=== PATIENT | female | born 1990 | race Caucasian/White ===

== ENCOUNTER 2023-10-23 13:45 | Outpatient (RCR) | payer OTHER, SELFPAY ==
--- NOTE | 2023-10-15 17:24 | PT.OIE ---
Current Diagnoses Constipation, unspecified (10/15/23) Radiculopathy, lumbosacral region (10/15/23) Pelvic and perineal pain (10/15/23) Fecal smearing (10/15/23) Unspecified urinary incontinence (10/15/23) Visit Care Team Role Provider Type GUNNAR Woodruff Family Provider Non-Staff Primary Care Provider Specialty: Nursing Address: [facility] [address], [place], [address] Email: Quintin Bird MD Attending Provider Non-Staff Referring Provider Specialty: COUNTER WAITER Address: [facility] [employer], [address], [place], [address] Email: Physical Therapy Initial Evaluation PT-OP-A Visit Information Start: 10/08/23 17:51 Freq: Status: Active Protocol: Document 10/15/23 07:19 LRN (Rec: 10/15/23 09:03 LRN [id number]) Out-Patient Physical Therapy Visit Information Visit Information Visit Type Initial Evaluation Visit Start Time 07:30 Visit Stop Time 08:20 Visit Number 1 Evaluation Information Evaluation Date 10/15/23 Precautions Precautions Medicated for Anxiety and OCD PT-OP-B Current Condition Start: 10/08/23 17:51 Freq: Status: Active Protocol: Document 10/15/23 07:19 LRN (Rec: 10/15/23 09:03 LRN [id number]) Current Condition History of Current Condition Onset Date Urinary (2011) and fecal (aug 2021) Current Complaints Urinary stress incont and fecal leakage of viscous fluid . History of Current Condition Pt reports stress urinary incontinence, since first in 2011 that is now daily. She also reports fecal viscous fluid leakage since her 2nd . States she can't feel when she is leaking the fecal, brown tinted, viscous fluid. She denies solid stool leakage. She has had LBP since her recent and is having trouble walking standing due to sharp pains. States with her 2021 she developed gestational diabetes at 35th-36th week, and an irritable uterus that caused her core muscles to be constantly contracted with subsequent totally urinary incontinence; therefore was induced at 37 weeks. She has had lower sacral pain since childhold that shoots down the posterior aspect of the RLE ending at the bottom of the plantar surface of the midfoot (middle toe, proximal 3rd phalanx) where she had stepped on a nail. Lower sacral pain goes away with rubbing of the foot. She reports abdominal pain across the abdomen described as ongoing heavy pain, and groin pain that is sharp in nature that shoots up into the abdomen with anything like walking or lifting one leg out too far. She trys to contract her PF before bending to miminimize urinary leakage. Prior Treatments and Tests None Treatment Goals Patient/Caregiver Goals Pt goal is to improve PF health to reduce pain and prepare for 3rd that she wants to start trying now . Personal Factors Other Personal Factors That May Effect Pt has 11 yo girl and 1.5 yo Therapy/Recovery boy. 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 Employer is based in [place]. PT-OP-C Subjective Start: 10/08/23 17:51 Freq: Status: Active Protocol: Document 10/15/23 07:19 LRN (Rec: 10/15/23 09:03 LRN [id number]) Patient Questionnaires Pelvic Pain and Urgency/Frequency Patient Symptom Scale Pelvic Pain Score 15 PT-OP-I Pelvic Floor Start: 10/08/23 17:51 Freq: Status: Active Protocol: Document 10/15/23 07:19 LRN (Rec: 10/15/23 09:03 LRN [id number]) Pelvic Floor Assessment Urine Pelvic Floor Surgery 2011 tearing w/ Urinary Symptoms Dribbling After Urination, Falling Out Feeling/Heavy Other Urinary Symptoms On period feeling of falling out. Leakage Size Large Leakage Cause Cough,Exercise,Lifting,Sneeze Other Leakage Causes Bending down Leaks Per Day 8-10 Voiding Frequency 5x/day Nocturia 1 Pads Used In 24 Hours 4-5 Urine Pad Type Maxi Pad Bowel Bowel Symptoms Constipation,Fecal Leakage, Uncontrolled Flatulence,Pain Other Bowel Symptoms Has had BMs every other day since childhood. Has done abdominal massages to help. Bowel Movement Frequency 2x/day of small amounts grape size (1-2), Once every other day reg BM Jefferson Stool Chart Comments 2x/day have type 2 grape size daily w/urinating. Type 4 every other day. Pelvic Clock Pelvic Clock 6-9 Tenderness Pelvic Clock 9-12 Tenderness Prolapse Cystocele Grade 2 Rectocele Grade 1 Prolapse Comments Uterine felt at ~6.5 cm deep. Perineal Descent Resting Absent Bearing Present Contraction Ability Manual Muscle Testing Left 3 Manual Muscle Testing Right 3 Manual Muscle Testing Anterior 3 Manual Muscle Testing Posterior 3 Muscle Endurance (Seconds) 2 Number of Quick Contractions In 10 9 Seconds PT-OP-J Posture/Palpation/Skin Start: 10/08/23 17:51 Freq: Status: Active Protocol: Document 10/15/23 07:19 LRN (Rec: 10/15/23 09:03 LRN [id number]) Posture Evaluation Position Standing Head/C-Spine Posture Forward Head L-Spine Posture Increased Lordosis Shoulder Posture (L) Elevated Pelvis Posture Anteriorly Tilted Comments Posture Comments Flattened upper T/S, L iliac crest a little elevated. PT-OP-K Range of Motion Start: 10/08/23 17:51 Freq: Status: Active Protocol: Document 10/15/23 07:19 LRN (Rec: 10/15/23 09:03 LRN [id number]) Lumbar Spine Range of Motion Lumbar Spine Active Degrees Testing Position Standing Flexion 80 Extension 3 Rotation Left 25 Rotation Right 40 Lateral Flexion Left 13 Lateral Flexion Right 20 ROM Limitations Soft Tissue Tightness,Pain Hip Goniometric Range of Motion Hip Right Passive Testing Position Supine Abduction 45 Internal Rotation 30 External Rotation 70 Left Passive Testing Position Supine Abduction 40 Internal Rotation 25 External Rotation 70 PT-OP-M Strength Start: 10/08/23 17:51 Freq: Status: Active Protocol: Document 10/15/23 07:19 LRN (Rec: 10/15/23 09:03 LRN [id number]) Hip Strength Hip Manual Muscle Testing Right Flexion (L2) 3 Fair Comments Strength is generally 3/5 Left Abduction 3+ Fair+ Comments Strength generally 3/5 except as indicated above. PT-OP-Q Treatments Start: 10/08/23 17:51 Freq: Status: Active Protocol: Document 10/15/23 07:19 LRN (Rec: 10/15/23 09:03 LRN [id number]) Self-Care/Home Management Treatment Education Other Education Discussed results of evaluation, attendance compliance, goals, and plan of care (POC). Pt agreeable to attendance compliance, goals and POC. Pt educated in use of Bladder Diary and I/S in tracking for 1 week bowel and bladder and related items. Discussed use of 2 different diaries for tracking of bladder, pt chose to use one diary. PT-OP-T Assessment and Plan Start: 10/08/23 17:51 Freq: Status: Active Protocol: Document 10/15/23 07:19 LRN (Rec: 10/15/23 09:03 LRN [id number]) Physical Therapy Assessment Rehab Potential Rehabilitation Potential Fair Evaluation Complexity Number of Personal Factors/Comorbidities 1-2 Number of Body Systems Impaired 4 or More Clinical Presentation at Evaluation Evolving Impairments Impairments Activity Tolerance, Coordination,Pain,Posture,ROM, Soft Tissue Mobility,Strength, Transfers Goals Four Impairment Poor core stability Short Term Goal (STG) Pt education in DR protection using towel for support to DR with transfers and will be able to self identify diastasis rectus. STG Duration 2 wks-10/23/23 Order Caller Goal (LTG) Improve PF/core strength to reduce abdominal pain and prepare for 3rd . LTG Duration 8 wks-12/11/23 Three Impairment Fecal fluid leakage Short Term Goal (STG) Strengthen posterior PF strength to reduce fecal fluid leakage. STG Duration 4 wks-11/13/23 Group Home Goal (LTG) Pt will demonstrate normal BM of type 3-4 with voiding daily . LTG Duration 8 wks-12/11/23 Two Impairment Urinary stress incontinence. Impairment PF weakness with urinary leakage on stress with a cough , sneeze, laugh, bending over. Short Term Goal (STG) Education in PF contraction w/ o substitute muscles. STG Duration 3 wks-11/06/23 Group Home Goal (LTG) Strengthen PF and modify pt's movement with pt able to cough , sneeze, and bend over without urinary leakage. LTG Duration 8 wks-12/11/23 One Impairment Pt lacks appropriate self care HEP Short Term Goal (STG) Education in proper methods for transfer with coordination of breathing and PF contractions. STG Duration 1 wks-10/23/23 Group Home Goal (LTG) Pt will be independent with a self care HEP of PF/core strengthening and hip ROM exercises. LTG Duration 10 wks-12/25/23 Assessment Summary Assessment Pt is a 33 yo female who presents with stress urinary incontinence and reported fecal viscous fluid leakage. The pt demonstrates notable weakness of her core, hips, PF (endurance worse than strength), pain in her 6-10 of the PF clock, and constipation with reported leakage of a clear, brown, viscous fluid. The pt's uterus has dropped and is palpable and she appears to have a grade 2 cystocele with rectum bulging into the vaginal canal. The pt will benefit from skilled physical therapy to improve PF/core strength (posterior & anterior ), core stability, hip strength and mobility, coordination of movement with breath/PF contraction, and decrease abdominal and PF pain with improved soft tissue mobility, in order to achieve the above stated goals. Physical Therapy Plan Frequency and Duration Frequency of Treatment 1x/Week Duration of treatment (weeks) 10 Plan of Care Start Date 10/15/23 Plan of Care End Date 12/25/23 Therapeutic Interventions Therapeutic Interventions Home Exercise Program,Joint Mobilizations,Manual Therapy, Neuromuscular Re-education, Self-Care/Home Management,Soft Tissue Mobilization,Taping, Therapeutic Activities, Therapeutic Exercises Modalities Cold Pack/Ice Massage,Hot Packs Next Visit Focus/Plan Next Visit Plan Next: Re-review compliance contract. Assess abdominal STM and check for DR. Reviewed Bladder dairy and discussed fluid intake (AM/PM) , bowel movement frequency, & nighttime voiding frequency. EMG PF strengthening long holds > Quick contractions ( kegel w/o substitute muscles), & TA strengthening. Pt education and lengthy discussion of how to have Bowel movements (bowel movements without holding breath) and discuss squatty potty and issue handout. Educate pt in proper body mechanics coordinating breathwork and PF contractions with ADLs/transfers (proper squatting and lifting, sit to stand, and moving in bed), body mechanics and exercise. Sacral Rebalancing: Sacrum, Bilateral Ilieum. Improve abdominal soft tissue (uterus/bladder/urachus) mobility. Hip stretch (IR: L>R).
--- NOTE | 2023-10-15 17:24 | PT.OPPOC ---
Physical, Occupational & Speech Therapy At [facility] Current Diagnoses Constipation, unspecified (10/15/23) Radiculopathy, lumbosacral region (10/15/23) Pelvic and perineal pain (10/15/23) Fecal smearing (10/15/23) Unspecified urinary incontinence (10/15/23) Visit Care Team Role Provider Type GUNNAR Woodruff Family Provider Non-Staff Primary Care Provider Specialty: Nursing Address: [address] [place] [address], [address] Email: Quintin Bird MD Attending Provider Non-Staff Referring Provider Specialty: DONOR SERVICES SPECIALIST Address: [facility] student[employer] [facility], [address], [place], [address] Email: Plan Of Care PT-OP-T Assessment and Plan Start: 10/08/23 17:51 Freq: Status: Active Protocol: Document 10/15/23 07:19 LRN (Rec: 10/15/23 09:03 LRN [id number]) Physical Therapy Assessment Rehab Potential Rehabilitation Potential Fair Evaluation Complexity Number of Personal Factors/Comorbidities 1-2 Number of Body Systems Impaired 4 or More Clinical Presentation at Evaluation Evolving Impairments Impairments Activity Tolerance, Coordination,Pain,Posture,ROM, Soft Tissue Mobility,Strength, Transfers Goals Four Impairment Poor core stability Short Term Goal (STG) Pt education in DR protection using towel for support to DR with transfers and will be able to self identify diastasis rectus. STG Duration 2 wks-10/23/23 Longterm Goal (LTG) Improve PF/core strength to reduce abdominal pain and prepare for 3rd . LTG Duration 8 wks-12/11/23 Three Impairment Fecal fluid leakage Short Term Goal (STG) Strengthen posterior PF strength to reduce fecal fluid leakage. STG Duration 4 wks-11/13/23 Longterm Goal (LTG) Pt will demonstrate normal BM of type 3-4 with voiding daily . LTG Duration 8 wks-12/11/23 Two Impairment Urinary stress incontinence. Impairment PF weakness with urinary leakage on stress with a cough , sneeze, laugh, bending over. Short Term Goal (STG) Education in PF contraction w/ o substitute muscles. STG Duration 3 wks-11/06/23 Longterm Goal (LTG) Strengthen PF and modify pt's movement with pt able to cough , sneeze, and bend over without urinary leakage. LTG Duration 8 wks-12/11/23 One Impairment Pt lacks appropriate self care HEP Short Term Goal (STG) Education in proper methods for transfer with coordination of breathing and PF contractions. STG Duration 1 wks-10/23/23 Homoeopath Goal (LTG) Pt will be independent with a self care HEP of PF/core strengthening and hip ROM exercises. LTG Duration 10 wks-12/25/23 Assessment Summary Assessment Pt is a 33 yo female who presents with stress urinary incontinence and reported fecal viscous fluid leakage. The pt demonstrates notable weakness of her core, hips, PF (endurance worse than strength), pain in her 6-10 of the PF clock, and constipation with reported leakage of a clear, brown, viscous fluid. The pt's uterus has dropped and is palpable and she appears to have a grade 2 cystocele with rectum bulging into the vaginal canal. The pt will benefit from skilled physical therapy to improve PF/core strength (posterior & anterior ), core stability, hip strength and mobility, coordination of movement with breath/PF contraction, and decrease abdominal and PF pain with improved soft tissue mobility, in order to achieve the above stated goals. Physical Therapy Plan Frequency and Duration Frequency of Treatment 1x/Week Duration of treatment (weeks) 10 Plan of Care Start Date 10/15/23 Plan of Care End Date 12/25/23 Therapeutic Interventions Therapeutic Interventions Home Exercise Program,Joint Mobilizations,Manual Therapy, Neuromuscular Re-education, Self-Care/Home Management,Soft Tissue Mobilization,Taping, Therapeutic Activities, Therapeutic Exercises Modalities Cold Pack/Ice Massage,Hot Packs Next Visit Focus/Plan Next Visit Plan Next: Re-review compliance contract. Assess abdominal STM and check for DR. Reviewed Bladder dairy and discussed fluid intake (AM/PM) , bowel movement frequency, & nighttime voiding frequency. EMG PF strengthening long holds > Quick contractions ( kegel w/o substitute muscles), & TA strengthening. Pt education and lengthy discussion of how to have Bowel movements (bowel movements without holding breath) and discuss squatty potty and issue handout. Educate pt in proper body mechanics coordinating breathwork and PF contractions with ADLs/transfers (proper squatting and lifting, sit to stand, and moving in bed), body mechanics and exercise. Sacral Rebalancing: Sacrum, Bilateral Ilieum. Improve abdominal soft tissue (uterus/bladder/urachus) mobility. Hip stretch (IR: L>R). Plan of Care Dates Plan of Care Start Date 10/15/23 Plan of Care End Date 12/25/23 Electronically Signed by: Davida Fonseca, PT 10/15/23 9919 If you are in agreement with this Plan of Care, please return a signed and dated copy. I have reviewed this Plan of Care and certify that the skilled therapy services above are required to meet the patient?s needs. Physician Signature Date Printed Name and Credentials Clinical Instructor Signature Printed Name and Credentials
--- NOTE | 2023-10-23 15:04 | PT.OTN ---
Current Diagnoses Constipation, unspecified (10/23/23) Radiculopathy, lumbosacral region (10/23/23) Pelvic and perineal pain (10/23/23) Fecal smearing (10/23/23) Unspecified urinary incontinence (10/23/23) Physical Therapy Treatment Note PT-OP-A Visit Information Start: 10/08/23 17:51 Freq: Status: Active Protocol: Document 10/23/23 13:50 LRN (Rec: 10/23/23 15:04 LRN [id number]) Out-Patient Physical Therapy Visit Information Visit Information Visit Type Treatment Note Visit Start Time 13:50 Visit Stop Time 14:28 Visit Number 2 Evaluation Information Evaluation Date 10/15/23 Precautions Precautions Medicated for Anxiety and OCD PT-OP-B Current Condition Start: 10/08/23 17:51 Freq: Status: Active Protocol: Document 10/15/23 07:19 LRN (Rec: 10/15/23 09:03 LRN [id number]) Current Condition History of Current Condition Onset Date Urinary (2011) and fecal (aug 2021) Current Complaints Urinary stress incont and fecal leakage of viscous fluid . History of Current Condition Pt reports stress urinary incontinence, since first in 2011 that is now daily. She also reports fecal viscous fluid leakage since her 2nd . States she can't feel when she is leaking the fecal, brown tinted, viscous fluid. She denies solid stool leakage. She has had LBP since her recent and is having trouble walking standing due to sharp pains. States with her 2021 she developed gestational diabetes at 35th-36th week, and an irritable uterus that caused her core muscles to be constantly contracted with subsequent totally urinary incontinence; therefore was induced at 37 weeks. She has had lower sacral pain since childhold that shoots down the posterior aspect of the RLE ending at the bottom of the plantar surface of the midfoot (middle toe, proximal 3rd phalanx) where she had stepped on a nail. Lower sacral pain goes away with rubbing of the foot. She reports abdominal pain across the abdomen described as ongoing heavy pain, and groin pain that is sharp in nature that shoots up into the abdomen with anything like walking or lifting one leg out too far. She trys to contract her PF before bending to miminimize urinary leakage. Prior Treatments and Tests None Treatment Goals Patient/Caregiver Goals Pt goal is to improve PF health to reduce pain and prepare for 3rd that she wants to start trying now . Personal Factors Other Personal Factors That May Effect Pt has 11 yo girl and 1.5 yo Therapy/Recovery boy. 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 Employer is based in [place]. PT-OP-C Subjective Start: 10/08/23 17:51 Freq: Status: Active Protocol: Document 10/23/23 13:50 LRN (Rec: 10/23/23 15:04 LRN [id number]) OP-PT Subjective Patient Comments Patient Comments 7-20 secs with urine small stream (not pushing like normal). Stools are type 1 & 2, 4x/day with urination. Every couple of days has an urge to poop, has a type #3-#4 . If doesn't poop, then has really bad cramps and pain in lower abdomen, then the poop flies out. Drinks lots of coffee, 5-6 8 0z a day and 2-3 plain water, 6 12 oz can of sparkling water. White wine in evening sometimes. PT-OP-I Pelvic Floor Start: 10/08/23 17:51 Freq: Status: Active Protocol: Document 10/15/23 07:19 LRN (Rec: 10/15/23 09:03 LRN [id number]) Pelvic Floor Assessment Urine Pelvic Floor Surgery 2011 tearing w/ Urinary Symptoms Dribbling After Urination, Falling Out Feeling/Heavy Other Urinary Symptoms On period feeling of falling out. Leakage Size Large Leakage Cause Cough,Exercise,Lifting,Sneeze Other Leakage Causes Bending down Leaks Per Day 8-10 Voiding Frequency 5x/day Nocturia 1 Pads Used In 24 Hours 4-5 Urine Pad Type Maxi Pad Bowel Bowel Symptoms Constipation,Fecal Leakage, Uncontrolled Flatulence,Pain Other Bowel Symptoms Has had BMs every other day since childhood. Has done abdominal massages to help. Bowel Movement Frequency 2x/day of small amounts grape size (1-2), Once every other day reg BM [place] Stool Chart Comments 2x/day have type 2 grape size daily w/urinating. Type 4 every other day. Pelvic Clock Pelvic Clock 6-9 Tenderness Pelvic Clock 9-12 Tenderness Prolapse Cystocele Grade 2 Rectocele Grade 1 Prolapse Comments Uterine felt at ~6.5 cm deep. Perineal Descent Resting Absent Bearing Present Contraction Ability Manual Muscle Testing Left 3 Manual Muscle Testing Right 3 Manual Muscle Testing Anterior 3 Manual Muscle Testing Posterior 3 Muscle Endurance (Seconds) 2 Number of Quick Contractions In 10 9 Seconds PT-OP-J Posture/Palpation/Skin Start: 10/08/23 17:51 Freq: Status: Active Protocol: Document 10/15/23 07:19 LRN (Rec: 10/15/23 09:03 LRN [id number]) Posture Evaluation Position Standing Head/C-Spine Posture Forward Head L-Spine Posture Increased Lordosis Shoulder Posture (L) Elevated Pelvis Posture Anteriorly Tilted Comments Posture Comments Flattened upper T/S, L iliac crest a little elevated. PT-OP-K Range of Motion Start: 10/08/23 17:51 Freq: Status: Active Protocol: Document 10/15/23 07:19 LRN (Rec: 10/15/23 09:03 LRN [id number]) Lumbar Spine Range of Motion Lumbar Spine Active Degrees Testing Position Standing Flexion 80 Extension 3 Rotation Left 25 Rotation Right 40 Lateral Flexion Left 13 Lateral Flexion Right 20 ROM Limitations Soft Tissue Tightness,Pain Hip Goniometric Range of Motion Hip Right Passive Testing Position Supine Abduction 45 Internal Rotation 30 External Rotation 70 Left Passive Testing Position Supine Abduction 40 Internal Rotation 25 External Rotation 70 PT-OP-M Strength Start: 10/08/23 17:51 Freq: Status: Active Protocol: Document 10/15/23 07:19 LRN (Rec: 10/15/23 09:03 LRN [id number]) Hip Strength Hip Manual Muscle Testing Right Flexion (L2) 3 Fair Comments Strength is generally 3/5 Left Abduction 3+ Fair+ Comments Strength generally 3/5 except as indicated above. PT-OP-Q Treatments Start: 10/08/23 17:51 Freq: Status: Active Protocol: Document 10/23/23 13:50 LRN (Rec: 10/23/23 15:04 LRN [id number]) Manual Therapy Treatment Soft Tissue Mobilization Bowel Massage Body Location Bowel Massage Intensity/Depth Moderate Body Position Supine Comments R ASIS > rib > across to opp rib > L ASIS x 5 Manual Techniques Pt PF self awareness Type Palpation Body Location PF Body Position Supine Reps/Duration 8' Comments With visual feedback of mirror , pt shown with digital insertion through vaginal canal anatomy visible (uretral opening/urethra) and bulge. Discussion of location of uterus and depth uterus felt. Self-Care/Home Management Treatment Education Patient Education Home Exercise Program Other Education 20' Discussed bladder diary from pt's memory recall, indicating she drinks a lot of coffee, carbonated water, and plain water. Discussed her fluid intake of 5-6 cups of coffee, 6-12 oz cans of sparkling water, and 2-3 cups plain water per day, and sometimes white wine in evenings. Encouraged pt to drink less caffeine and discussed coffee substitutes. Discussed Stools 4x/day with urination of type 1 & 2, and every couple of days type 3-4 and BM w/urge. Discussed pt voiding times of 7-20 secs of small urine stream (not pushing like normally would). Reviewed & discussed at length Foods and beverages Bladder Diet, with handouts issued. Reviewed & discussed Bowel care handout. Activities Self-Care/Home Management Activities Issued & reviewed handout for Bowel massage. Issued handout for Bowel care. Issued Foods & Beverages Bladder Diet list. PT-OP-T Assessment and Plan Start: 10/08/23 17:51 Freq: Status: Active Protocol: Document 10/23/23 13:50 LRN (Rec: 10/23/23 15:04 LRN [id number]) Physical Therapy Assessment Goals Four Impairment Poor core stability Short Term Goal (STG) Pt education in DR protection using towel for support to DR with transfers and will be able to self identify diastasis rectus. STG Duration 2 wks-10/23/23 Mcc Goal (LTG) Improve PF/core strength to reduce abdominal pain and prepare for 3rd . LTG Duration 8 wks-12/11/23 Three Impairment Fecal fluid leakage Short Term Goal (STG) Strengthen posterior PF strength to reduce fecal fluid leakage. STG Duration 4 wks-11/13/23 Mcc Goal (LTG) Pt will demonstrate normal BM of type 3-4 with voiding daily . LTG Duration 8 wks-12/11/23 Two Impairment Urinary stress incontinence. Impairment PF weakness with urinary leakage on stress with a cough , sneeze, laugh, bending over. Short Term Goal (STG) Education in PF contraction w/ o substitute muscles. STG Duration 3 wks-11/06/23 Account Executive Goal (LTG) Strengthen PF and modify pt's movement with pt able to cough , sneeze, and bend over without urinary leakage. LTG Duration 8 wks-12/11/23 One Impairment Pt lacks appropriate self care HEP Short Term Goal (STG) Education in proper methods for transfer with coordination of breathing and PF contractions. STG Duration 1 wks-10/23/23 Account Executive Goal (LTG) Pt will be independent with a self care HEP of PF/core strengthening and hip ROM exercises. LTG Duration 10 wks-12/25/23 Assessment Summary Assessment 33 yo female who presents with stress urinary incontinence and reported fecal viscous fluid leakage. Pt did not complete 7 days of bladder diary and did not bring in her 2-1/2 days of diary she did chart. She had questions regarding PF anatomy and was receptive to all education today. Pt will try to be consistent with bladder diary for next session. Physical Therapy Plan Frequency and Duration Frequency of Treatment 1x/Week Duration of treatment (weeks) 10 Plan of Care Start Date 10/15/23 Plan of Care End Date 12/25/23 Next Visit Focus/Plan Next Note Type Treatment Note Next Visit Plan Next: Assess abdominal soft tissue and check for DR. Reviewed Bladder dairy and discussed and make recommendations as needed. VEMG PF assessment/ strengthening long holds > Quick contractions (kegel w/o substitute muscles), & start TA strengthening. Pt education and lengthy discussion of how to have Bowel movements (bowel movements without holding breath) and discuss squatty potty and issue handout. Educate pt in proper body mechanics coordinating breathwork and PF contractions with ADLs/transfers (proper squatting and lifting, sit to stand, and moving in bed), body mechanics and exercise. Sacral Rebalancing: Sacrum, Bilateral Ilieum. Improve abdominal soft tissue (uterus/bladder/urachus) mobility. Hip stretch (IR: L>R).
--- NOTE | 2023-10-30 12:18 | PT-OP ANOTE ---
Late Cancel due to lack of childcare.
--- NOTE | 2023-11-24 16:45 | PT-OP ANOTE ---
Msg left regarding pt's 2 cancelations in a row and requested call back by Thursday or will have to discharge pt from therapy. PT number left and times best to call to speak to me.
--- NOTE | 2023-12-29 12:00 | PT.OPDS ---
Current Diagnoses Constipation, unspecified (10/23/23) Radiculopathy, lumbosacral region (10/23/23) Pelvic and perineal pain (10/23/23) Fecal smearing (10/23/23) Unspecified urinary incontinence (10/23/23) Visit Care Team Role Provider Type GUNNAR Woodruff Family Provider Non-Staff Primary Care Provider Specialty: Nursing Address: [address] [place] [address]. [address], [place], [address] Email: Quintin Bird MD Attending Provider Non-Staff Referring Provider Specialty: SALES ACCOUNT COORDINATOR Address: [facility] [employer] [facility], [address], [place], [address] Email: Visit Number Visit Number 2 Discharge Summary PT-OP-B Current Condition Start: 10/08/23 17:51 Freq: Status: Active Protocol: Document 10/15/23 07:19 LRN (Rec: 10/15/23 09:03 LRN [id number]) Current Condition History of Current Condition Onset Date Urinary (2011) and fecal (aug 2021) Current Complaints Urinary stress incont and fecal leakage of viscous fluid . History of Current Condition Pt reports stress urinary incontinence, since first in 2011 that is now daily. She also reports fecal viscous fluid leakage since her 2nd . States she can't feel when she is leaking the fecal, brown tinted, viscous fluid. She denies solid stool leakage. She has had LBP since her recent and is having trouble walking standing due to sharp pains. States with her 2021 she developed gestational diabetes at 35th-36th week, and an irritable uterus that caused her core muscles to be constantly contracted with subsequent totally urinary incontinence; therefore was induced at 37 weeks. She has had lower sacral pain since childhold that shoots down the posterior aspect of the RLE ending at the bottom of the plantar surface of the midfoot (middle toe, proximal 3rd phalanx) where she had stepped on a nail. Lower sacral pain goes away with rubbing of the foot. She reports abdominal pain across the abdomen described as ongoing heavy pain, and groin pain that is sharp in nature that shoots up into the abdomen with anything like walking or lifting one leg out too far. She trys to contract her PF before bending to miminimize urinary leakage. Prior Treatments and Tests None Treatment Goals Patient/Caregiver Goals Pt goal is to improve PF health to reduce pain and prepare for 3rd that she wants to start trying now . Personal Factors Other Personal Factors That May Effect Pt has 11 yo girl and 1.5 yo Therapy/Recovery boy. 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 Employer is based in [place]. PT-OP-C Subjective Start: 10/08/23 17:51 Freq: Status: Active Protocol: Document 10/23/23 13:50 LRN (Rec: 10/23/23 15:04 LRN [id number]) OP-PT Subjective Patient Comments Patient Comments 7-20 secs with urine small stream (not pushing like normal). Stools are type 1 & 2, 4x/day with urination. Every couple of days has an urge to poop, has a type #3-#4 . If doesn't poop, then has really bad cramps and pain in lower abdomen, then the poop flies out. Drinks lots of coffee, 5-6 8 0z a day and 2-3 plain water, 6 12 oz can of sparkling water. White wine in evening sometimes. PT-OP-I Pelvic Floor Start: 10/08/23 17:51 Freq: Status: Active Protocol: Document 10/15/23 07:19 LRN (Rec: 10/15/23 09:03 LRN [id number]) Pelvic Floor Assessment Urine Pelvic Floor Surgery 2011 tearing w/ Urinary Symptoms Dribbling After Urination, Falling Out Feeling/Heavy Other Urinary Symptoms On period feeling of falling out. Leakage Size Large Leakage Cause Cough,Exercise,Lifting,Sneeze Other Leakage Causes Bending down Leaks Per Day 8-10 Voiding Frequency 5x/day Nocturia 1 Pads Used In 24 Hours 4-5 Urine Pad Type Maxi Pad Bowel Bowel Symptoms Constipation,Fecal Leakage, Uncontrolled Flatulence,Pain Other Bowel Symptoms Has had BMs every other day since childhood. Has done abdominal massages to help. Bowel Movement Frequency 2x/day of small amounts grape size (1-2), Once every other day reg BM [place] Stool Chart Comments 2x/day have type 2 grape size daily w/urinating. Type 4 every other day. Pelvic Clock Pelvic Clock 6-9 Tenderness Pelvic Clock 9-12 Tenderness Prolapse Cystocele Grade 2 Rectocele Grade 1 Prolapse Comments Uterine felt at ~6.5 cm deep. Perineal Descent Resting Absent Bearing Present Contraction Ability Manual Muscle Testing Left 3 Manual Muscle Testing Right 3 Manual Muscle Testing Anterior 3 Manual Muscle Testing Posterior 3 Muscle Endurance (Seconds) 2 Number of Quick Contractions In 10 9 Seconds PT-OP-J Posture/Palpation/Skin Start: 10/08/23 17:51 Freq: Status: Active Protocol: Document 10/15/23 07:19 LRN (Rec: 10/15/23 09:03 LRN [id number]) Posture Evaluation Position Standing Head/C-Spine Posture Forward Head L-Spine Posture Increased Lordosis Shoulder Posture (L) Elevated Pelvis Posture Anteriorly Tilted Comments Posture Comments Flattened upper T/S, L iliac crest a little elevated. PT-OP-K Range of Motion Start: 10/08/23 17:51 Freq: Status: Active Protocol: Document 10/15/23 07:19 LRN (Rec: 10/15/23 09:03 LRN [id number]) Lumbar Spine Range of Motion Lumbar Spine Active Degrees Testing Position Standing Flexion 80 Extension 3 Rotation Left 25 Rotation Right 40 Lateral Flexion Left 13 Lateral Flexion Right 20 ROM Limitations Soft Tissue Tightness,Pain Hip Goniometric Range of Motion Hip Right Passive Testing Position Supine Abduction 45 Internal Rotation 30 External Rotation 70 Left Passive Testing Position Supine Abduction 40 Internal Rotation 25 External Rotation 70 PT-OP-M Strength Start: 10/08/23 17:51 Freq: Status: Active Protocol: Document 10/15/23 07:19 LRN (Rec: 10/15/23 09:03 LRN [id number]) Hip Strength Hip Manual Muscle Testing Right Flexion (L2) 3 Fair Comments Strength is generally 3/5 Left Abduction 3+ Fair+ Comments Strength generally 3/5 except as indicated above. PT-OP-T Assessment and Plan Start: 10/08/23 17:51 Freq: Status: Active Protocol: Document 12/29/23 11:54 LRN (Rec: 12/29/23 11:59 LRN [id number]) Physical Therapy Assessment Goals Four Impairment Poor core stability Short Term Goal (STG) Pt education in DR protection using towel for support to DR with transfers and will be able to self identify diastasis rectus. STG Duration 2 wks-10/23/23 (GOAL NOT MET) Correction Goal (LTG) Improve PF/core strength to reduce abdominal pain and prepare for 3rd . LTG Duration 8 wks-12/11/23 (GOAL NOT MET) Three Impairment Fecal fluid leakage Short Term Goal (STG) Strengthen posterior PF strength to reduce fecal fluid leakage. STG Duration 4 wks-11/13/23 (GOAL NOT MET) Applications Architect Goal (LTG) Pt will demonstrate normal BM of type 3-4 with voiding daily . LTG Duration 8 wks-12/11/23 (GOAL NOT MET) Two Impairment Urinary stress incontinence. Impairment PF weakness with urinary leakage on stress with a cough , sneeze, laugh, bending over. Short Term Goal (STG) Education in PF contraction w/ o substitute muscles. STG Duration 3 wks-11/06/23 (GOAL NOT MET) Correction Goal (LTG) Strengthen PF and modify pt's movement with pt able to cough , sneeze, and bend over without urinary leakage. LTG Duration 8 wks-12/11/23 (GOAL NOT MET ) One Impairment Pt lacks appropriate self care HEP Short Term Goal (STG) Education in proper methods for transfer with coordination of breathing and PF contractions. STG Duration 1 wks-10/23/23 (GOAL NOT MET ) Correction Goal (LTG) Pt will be independent with a self care HEP of PF/core strengthening and hip ROM exercises. LTG Duration 10 wks-12/25/23 (GOAL NOT MET ) Assessment Summary Assessment Pt has been seen for her evaluation and 1 treatment visit. She left message requesting cancelation of her remaining visits; therefore the pt is being discharged from PT at pt request. Goals were not met due to lack of attendance. Physical Therapy Plan Discharge Physical Therapy Discharge Reasons Patient Request Discharge Comments Thank you for your referral.
== END 2023-12-31 12:14 | disposition home or self-care (01) ==
LOC: PHYS 13:45
PROVIDERS: Family Provider Nurse Practitioner Family; PCP Nurse Practitioner Family; Referring Provider Obstetrics & Gynecology; Visit Provider Obstetrics & Gynecology
DX: R32 Unspecified urinary incontinence (principal); R10.2 Pelvic and perineal pain; M54.17 Radiculopathy, lumbosacral region; R15.1 Fecal smearing; K59.00 Constipation, unspecified
CPT/HCPCS: 97110; 97140; 97162; 97535